=== PATIENT | male | born 1960 | race Asian ===

== ENCOUNTER 2017-12-17 08:26 | Outpatient (CLI) | payer OTHER ==
--- NOTE | 2017-12-17 12:51 | CT Report ---
CT ABDOMEN AND PELVIS WITHOUT CONTRAST: 12/17/2017 CLINICAL INDICATION: Nephrolithiasis. TECHNIQUE: Axial CT images of the abdomen and pelvis were obtained without oral or intravenous contrast. COMPARISON: No previous CT is available for comparison. FINDINGS: Limited evaluation of the lung bases is unremarkable. ABDOMEN: The kidneys are unremarkable, without evidence of nephrolithiasis or hydronephrosis. No hydroureter or ureterolithiasis is seen. allowing for the lack of intravenous contrast enhancement, the liver, spleen, pancreas and adrenal glands are unremarkable. The gallbladder is not dilated. No bowel dilatation, free gas, or free fluid is present. No abdominal adenopathy is seen. Pelvis: The urinary bladder and distal ureters are unremarkable. The appendix is seen in the right lower quadrant, and it is normal in caliber. No pelvic adenopathy or free fluid is present. Osseous structures demonstrate mild degenerative changes. IMPRESSION: NO EVIDENCE OF NEPHROLITHIASIS OR HYDRONEPHROSIS. NORMAL APPENDIX. CT DOSE REDUCTION STATEMENT In accordance with CT protocol optimization, one or more of the following dose reduction techniques were utilized for this exam: automated exposure control, adjustment of mA and/or KV based on patient size, or use of iterative reconstructive technique. TD: 12/17/2017 11:06
== END 2017-12-17 08:27 | disposition home or self-care (01) ==
LOC: DI 08:26
PROVIDERS: ATTEND Family Medicine
DX: N20.0 Calculus of kidney (principal)
CPT/HCPCS: 74176

== ENCOUNTER 2017-12-21 10:50 | Outpatient (CLI) | payer OTHER ==
[2017-12-21 19:04] LABS: BASOPHILS % (AUTO) 0.4 %; EOSINOPHILS # (AUTO) 0.1 10^3/uL (0.0-0.7); EOSINOPHILS % (AUTO) 2.6 %; HGB - HEMOGLOBIN 14.8 g/dL (14.0-18.0); LYMPHOCYTES % (AUTO) 52.2 %; MEAN CORPUSCULAR HEMOGLOBIN 30.4 pg (27.0-31.0); MEAN CORPUSCULAR HGB CONC 32.8 g/dL (32.0-36.0); MEAN CORPUSCULAR VOLUME 92.6 fL (80.0-94.0); MEAN PLATELET VOLUME 7.1 fL (7.4-11.4); MONOCYTES # (AUTO) 0.5 10^3/uL (0.0-1.0); MONOCYTES % (AUTO) 8.1 %; NEUTROPHILS # (AUTO) 2.1 10^3/uL (1.5-6.6); NEUTROPHILS % (AUTO) 36.7 %; PLT - PLATELET COUNT 214 10^3/uL (130-450); RED BLOOD COUNT 4.87 10^6/uL (4.70-6.10); RED CELL DISTRIBUTION WIDTH 13.2 % (12.0-15.0); WHITE BLOOD COUNT 5.7 x10^3/uL (4.8-10.8)
[2017-12-21 19:31] LABS: CHOL/HDL RATIO 4.8 (<5.0); CHOLESTEROL 209 mg/dL; HDL CHOLESTEROL 44 mg/dL; LDL CHOLESTEROL,CALCULATED 117 mg/dL; LDL/HDL RATIO 2.7 (<3.6); VLDL CHOLESTEROL 48 mg/dL
[2017-12-21 19:32] LABS: PSA FREE 0.449 ng/mL (0.16-2.81)
[2017-12-21 19:34] LABS: PSA TOTAL 3.8 ng/mL (0.000-2.000)
== END 2017-12-21 10:51 | disposition home or self-care (01) ==
LOC: LAB.WCP 10:50
PROVIDERS: ATTEND Family Medicine
DX: Z00.00 Encounter for general adult medical examination without abnormal findings (principal); R97.20 Elevated prostate specific antigen [PSA]
CPT/HCPCS: 36415; 80061; 83721; 84154; 84443; 85025

== ENCOUNTER 2018-11-24 06:37 | Outpatient (CLI) | payer BC ==
[~2018-11-24 06:37] MED LIST: IOVERSOL 320 100 ML VIAL IVP ONE
[2018-11-24] MEDS ORDERED: IOVERSOL 320 50 ML VIAL ONE (07:01)
[2018-11-24] MEDS ORDERED: IOVERSOL 320 100 ML VIAL IVP ONE ×2 (07:01→07:41)
[2018-11-24 07:04] LABS: ALBUMIN 4.3 g/dL (3.2-5.5); ALBUMIN/GLOBULIN RATIO 1.1 (1.0-2.2); BILIRUBIN,TOTAL 0.9 mg/dL (0.2-1.0); CALCIUM 9.6 mg/dL (8.5-10.3); CREATININE 0.9 mg/dL (0.6-1.2); TOTAL PROTEIN 8.1 g/dL (6.7-8.2)
--- NOTE | 2018-11-24 10:21 | CT Report ---
Reason: HEMATURIA, ELEVATED PROSTRATE SPECIFIC ANTIGEN, NE Procedure Date: 11/24/2018 Accession Number: [id number] / [id number] Procedure: CT - ABDOMEN/PELVIS W/WO CPT Code: FULL RESULT: EXAM: CT ABDOMEN WITHOUT AND WITH CONTRAST EXAM DATE: 11/24/2018 07:44 AM. HISTORY: HEMATURIA, ELEVATED PROSTRATE SPECIFIC ANTIGEN, NE. COMPARISON: ABDOMEN/PELVIS W/O 12/17/2017 8:34 AM. TECHNIQUE: Routine helical CT imaging was performed through the abdomen before and after administration of IV contrast: OPTI 320 100mL. Enteric contrast: No. Reconstruction: Coronal and sagittal. In accordance with CT protocol optimization, one or more of the following dose reduction techniques were utilized for this exam: automated exposure control, adjustment of mA and/or KV based on patient size, or use of iterative reconstructive technique. FINDINGS: Lung Bases: Unremarkable. Liver: Normal. No masses. Gallbladder/Bile Ducts: Unremarkable. Spleen: Normal. Pancreas: Normal. No masses or ductal obstruction. Adrenal Glands: Normal. Kidneys: Normal. No masses or hydronephrosis. Peritoneal Cavity/Bowel: Scattered diverticuli are seen involving the descending and sigmoid colon. There is no fat stranding or fluid collection to suggest the presence of diverticulitis. The appendix is well visualized and normal. Vasculature: There is atherosclerosis of the iliac arteries. There is no evidence of aneurysmal dilatation of the aorta. Bones: Degenerative changes of the thoracic and lumbar spine are noted. Other: None. IMPRESSION: No evidence of nephrolithiasis, hydronephrosis, or a renal mass. No evidence of a pelvic mass or lymphadenopathy. Atherosclerosis of the iliac arteries. [facility]
== END 2018-11-24 06:38 | disposition home or self-care (01) ==
LOC: DI 06:37
PROVIDERS: ATTEND Family Medicine
DX: R31.9 Hematuria, unspecified (principal); R97.20 Elevated prostate specific antigen [PSA]; N20.0 Calculus of kidney; R30.0 Dysuria; R73.09 Other abnormal glucose; E78.5 Hyperlipidemia, unspecified
CPT/HCPCS: 36415; 74178; 80053; Q9967

== ENCOUNTER 2019-11-17 17:10 | Outpatient (CLI) | payer BC, OTHER | END 2019-11-17 23:59 | disposition home or self-care (01) | LOC: LAB.R 17:10 | PROVIDERS: ATTEND Family Medicine | DX: R50.9 Fever, unspecified (principal) | CPT/HCPCS: 87275; 87276 ==

== ENCOUNTER 2019-12-04 18:55 | Outpatient (CLI) | payer OTHER | END 2019-12-04 18:56 | disposition home or self-care (01) | LOC: COV 18:55 | PROVIDERS: ATTEND Family Medicine | DX: U07.1 COVID-19 (principal) | CPT/HCPCS: 81599 ==